=== PATIENT | female | born 1985 | race Caucasian/White ===

== ENCOUNTER 2017-05-01 15:18 | Outpatient (CLI) | payer MEDICAID ==
[~2017-05-01] VITALS: Ht 157.5 cm; Wt 67.3 kg
[~2017-05-01 15:18] MED LIST: ALBU18HF IH; DOCU-131 PO; IBUP-1222 PO; OXYC-302 PO; PREN1TAB60 PO
[2017-05-01 15:32] VITALS: BP 115/70
== END 2017-05-01 16:40 | disposition home or self-care (01) ==
LOC: LDOP 15:18
PROVIDERS: ATTEND Obstetrics & Gynecology
DX: O42.90 Premature rupture of membranes, unspecified as to length of time between rupture and onset of labor, unspecified weeks of gestation (principal); O99.519 Diseases of the respiratory system complicating pregnancy, unspecified trimester; J45.909 Unspecified asthma, uncomplicated; Z3A.00 Weeks of gestation of pregnancy not specified
CPT/HCPCS: 59025; 89060; 99211; G0463; Q0114

== ENCOUNTER 2017-05-13 06:14 | Inpatient (IN) | payer MEDICAID ==
[~2017-05-13] VITALS: Ht 157.5 cm; Wt 70.0 kg
[2017-05-13] MEDS ORDERED: D5%-LACTATED RINGERS 1,000 ML IV SCH (06:15)
[2017-05-13] MEDS ORDERED: OXYTOCIN 30U/ 0.9% NaCL 500ML 500 ML IV PRN (06:15)
[2017-05-13] MEDS ORDERED: OXYTOCIN 30U/ 0.9% NaCL 500ML 500 ML IV ONE (06:15)
[2017-05-13] MEDS ORDERED: OXYTOCIN 30U/ 0.9% NaCL 500ML 500 ML ONE (06:28)
[2017-05-13] MEDS ORDERED: NEWBORN KIT ONE (06:28)
[2017-05-13] MEDS ORDERED: CALCIUM CARBONATE 500 MG TAB.CHEW PO PRN (06:30)
[2017-05-13] MEDS ORDERED: ONDANSETRON 2MG/ML, 2ML IVPush PRN (06:30)
[2017-05-13] MEDS ORDERED: FENTANYL PF 100 MCG/2ML IVPush PRN (06:30)
[2017-05-13] MEDS ORDERED: TERBUTALINE 1 MG/ML, 1ML IVPush PRN (06:30)
[2017-05-13] MEDS ORDERED: FENTANYL PF 100 MCG/2ML IV PRN (06:30)
[2017-05-13] MEDS: LACTATED RINGERS 1,000 ML IV SCH ×2 (06:44→11:07)
[2017-05-13 06:57] LABS: HEMATOCRIT 38.1 % (34.6-47.8); HEMOGLOBIN 12.9 g/dL (11.7-16.4); WHITE BLOOD COUNT 9.1 x10^3/uL (3.4-10)
[2017-05-13] MEDS ORDERED: FENTANYL/BUPIV./NS/PF 250 ML EPIDCONT ONE ×2 (11:45→11:50)
[2017-05-13] MEDS ORDERED: LIDOCAINE/PF 1.5%-EPI 1:200K, 30ML ONE (11:50)
[2017-05-13] MEDS ORDERED: LACTATED RINGERS 1,000 ML IV SCH (12:10)
[2017-05-13] MEDS ORDERED: FENTANYL/BUPIV./NS/PF 250 ML EPIDCONT SCH (12:10)
[2017-05-13] MEDS ORDERED: LACTATED RINGERS 1,000 ML IVBOLUS PRN (12:30)
[2017-05-13] MEDS ORDERED: ACETAMINOPHEN 325 MG TABLET ONE ×2 (14:41→14:44)
[2017-05-13] MEDS ORDERED: ACETAMINOPHEN 325 MG TABLET PO ONE (15:00)
[2017-05-13] MEDS: OXYTOCIN 30U/ 0.9% NaCL 500ML 500 ML IV SCH ×2 (17:27→23:31)
[2017-05-13] MEDS ORDERED: METHYLERGONOVINE 0.2 MG/ML IM PRN (17:30)
[2017-05-13] MEDS ORDERED: ACETAMINOPHEN 325 MG TABLET PO PRN (17:30)
[2017-05-13] MEDS ORDERED: MISOPROSTOL 200 MCG TABLET PR PRN (17:30)
[2017-05-13] MEDS ORDERED: HYDROcodone/APAP 5/325 TABLET PO PRN (17:30)
[2017-05-13] MEDS ORDERED: BISACODYL 10 MG SUPP PR PRN (17:30)
[2017-05-13] MEDS ORDERED: METOCLOPRAMIDE 5 MG/ML, 2ML IV PRN (17:30)
[2017-05-13] MEDS ORDERED: ONDANSETRON 2MG/ML, 2ML IV PRN (17:30)
[2017-05-13] MEDS ORDERED: HYDROcodone/APAP 5/325 TABLET ONE (18:50)
[2017-05-13] MEDS: HYDROcodone/APAP 5/325 TABLET PO PRN (18:51)
[2017-05-13 20:40] VITALS: BP 103/65
[2017-05-13] MEDS: IBUPROFEN 600 MG TABLET PO PRN (21:55)
[2017-05-13] MEDS: DOCUSATE 100 MG CAPSULE PO PRN (21:55)
[2017-05-14 00:10] VITALS: BP 111/65
[2017-05-14 06:06] LABS: HEMATOCRIT 36.1 % (34.6-47.8); HEMOGLOBIN 12.2 g/dL (11.7-16.4); WHITE BLOOD COUNT 9.7 x10^3/uL (3.4-10)
[2017-05-14] MEDS: HYDROcodone/APAP 5/325 TABLET PO PRN ×3 (07:38→15:36)
[2017-05-14] MEDS: IBUPROFEN 600 MG TABLET PO PRN ×2 (07:38→15:36)
[2017-05-14] MEDS: DOCUSATE 100 MG CAPSULE PO PRN (07:38)
[2017-05-14 07:40] VITALS: BP 110/76
[2017-05-14] MEDS ORDERED: PRENATAL VIT/IRON/FA 1 EACH TABLET PO SCH (09:00)
[2017-05-14 12:44] VITALS: BP 105/65
[2017-05-14] MEDS ORDERED: HYDR-3240 PO (15:56)
[2017-05-14 16:30] VITALS: BP 102/61
== END 2017-05-14 17:20 | disposition home or self-care (01) | DRG 775 ==
LOC: LDIP 06:14 → 2NW 20:24
PROVIDERS: ADMIT Obstetrics & Gynecology; ATTEND Obstetrics & Gynecology
PROC: 10E0XZZ Delivery of Products of Conception, External Approach (ICD-10-PCS; principal; 2017-05-13)
PROC: 0KQM0ZZ Repair Perineum Muscle, Open Approach (ICD-10-PCS; 2017-05-13)
PROC: 10907ZC Drainage of Amniotic Fluid, Therapeutic from Products of Conception, Via Natural or Artificial Opening (ICD-10-PCS; 2017-05-13)
PROC: 0W8NXZZ Division of Female Perineum, External Approach (ICD-10-PCS; 2017-05-13)
PROC: 3E0P3VZ Introduction of Hormone into Female Reproductive, Percutaneous Approach (ICD-10-PCS; 2017-05-13)
PROC: 00HU33Z Insertion of Infusion Device into Spinal Canal, Percutaneous Approach (ICD-10-PCS; 2017-05-13)
PROC: 3E0R3BZ Introduction of Anesthetic Agent into Spinal Canal, Percutaneous Approach (ICD-10-PCS; 2017-05-13)
DX: O77.0 Labor and delivery complicated by meconium in amniotic fluid (principal); J45.909 Unspecified asthma, uncomplicated; O99.52 Diseases of the respiratory system complicating childbirth; Z37.0 Single live birth; Z3A.39 39 weeks gestation of pregnancy
CPT/HCPCS: 36415; 85025; 86850; 86900; J3490; J2590; J3010; J7120